=== PATIENT | female | born 1965 | race Caucasian/White ===

== ENCOUNTER 2018-12-02 05:51 | Emergency (ER) | payer MEDICARE ==
[~2018-12-02] VITALS: Ht 165.1 cm; Wt 65.8 kg
--- NOTE | 2018-12-02 06:15 | NUR ---
ALERT AND ORIENTED X 4, VERBAL, AMBULATORY BROUGHT SELF FROM HOME WITH C/O OF DIZZINESS, WEAKNESS AND BEING WOBBLY WHICH STARTED ABOUT THREE HOURS AGO. PATIENT SAID SHE TOOK 4.5 TABLETS OF NOR[place] 10/5 SPREAD OUT DURING THE DAY FOR MIGRAINE. VITAL SIGNS WNL. WILL CONTINUE TO CLOSELY MONITOR.
--- NOTE | 2018-12-02 06:35 | NUR ---
URINE SPECIMEN TAKEN FOR URINE ANALYSIS.
[2018-12-02] MEDS ORDERED: ONDANSETRON HCL/PF 4 MG/2 ML VIAL ONE (06:49)
--- NOTE | 2018-12-02 06:58 | NUR ---
20G LAC IV STARTED, BLOOD WITHDRAWN SENT TO LAB.
[2018-12-02] MEDS ORDERED: IV NS 0.9% 1,000 ML BAG IV ONE (07:00)
[2018-12-02] MEDS ORDERED: ONDANSETRON HCL/PF 4 MG/2 ML VIAL IVP ONE (07:00)
--- NOTE | 2018-12-02 07:15 | NUR ---
REPORT GIVEN TO JENNA DELA CRUZ FOR MAUREEN.
[2018-12-02 07:20] LABS: BASOPHILS % (AUTO) 0.5 % (0.0-2.0); EOSINOPHILS % (AUTO) 1.2 % (0.0-6.0); HEMATOCRIT 42 % (33-45); HEMOGLOBIN 13.4 g/dL (11.5-14.8); LYMPHOCYTES # (AUTO) 1.3 /CMM (0.8-4.8); LYMPHOCYTES % (AUTO) 19.3 % (20.0-44.0); MEAN CORPUSCULAR HGB CONC 32 g/dl (31.0-36.0); MEAN CORPUSCULAR VOLUME 87 fL (82-100); MONOCYTES # (AUTO) 0.4 /CMM (0.1-1.30); MONOCYTES % (AUTO) 6.4 % (2.0-12.0); NEUTROPHILS # (AUTO) 4.9 /CMM (1.8-8.9); NEUTROPHILS % (AUTO) 72.6 % (43.0-81.0); PLATELET COUNT (AUTO) 229 /CMM (150-450); WHITE BLOOD COUNT (AUTO) 6.8 K/uL (4.3-11.0)
[2018-12-02 07:56] LABS: CALCIUM, SERUM 8.9 mg/dL (8.5-10.1); CREATININE 0.6 mg/dL (0.6-1.3); POTASSIUM 3.8 mmol/L (3.5-5.1)
[2018-12-02 08:02] LABS: ALBUMIN 3.9 g/dL (3.4-5.0); BILIRUBIN,DIRECT 0.1 mg/dL (0.0-0.2); BILIRUBIN,TOTAL 0.2 mg/dL (0.2-1.0); TOTAL PROTEIN, SERUM 7.4 g/dL (6.4-8.2)
[2018-12-02 09:49] VITALS: BP 132/85
--- NOTE | 2018-12-02 09:49 | NUR ---
Patient discharged to home in stable condition. Written and verbal after care instructions given. Patient verbalizes understanding of instruction. IV removed. Catheter intact and site benign. Pressure and 4x4 applied to site. No bleeding noted.
== END 2018-12-02 09:50 | disposition home or self-care (01) ==
LOC: ER 05:58
DX: R42 Dizziness and giddiness (principal); G43.909 Migraine, unspecified, not intractable, without status migrainosus; F31.9 Bipolar disorder, unspecified; F41.9 Anxiety disorder, unspecified; Z88.2 Allergy status to sulfonamides; Z60.2 Problems related to living alone
CPT/HCPCS: 36415; 80048; 80076; 85025; 96361; 96374; 99283; J2405; J7030